=== PATIENT | female | born 1935 | race African-American/Black ===

== ENCOUNTER 2019-09-09 09:04 | Inpatient (IN) | payer MEDICARE ==
[~2019-09-09] VITALS: Ht 154.9 cm; Wt 59.0 kg
[2019-09-09 10:16] LABS: BASO % 0 % (0-3); EOS % 0 % (0-3); HEMATOCRIT 42.5 % (36.0-47.0); HEMOGLOBIN 14.2 g/dL (12.0-15.5); LYMPH # 1.6 x10^3/uL (1.0-4.8); LYMPH % 16 % (24-48); MEAN CORPUSCULAR HEMOGLOBIN 30 pg (25-35); MEAN CORPUSCULAR HGB CONC 33 g/dL (31-37); MEAN CORPUSCULAR VOLUME 89 fL (79-100); MONO # 0.8 x10^3/uL (0.0-1.1); MONO % 8 % (0-9); NEUT # 7.5 x10^3/uL (1.8-7.7); NEUT % 76 % (31-73); PLATELET COUNT 254 x10^3/uL (140-400); RED BLOOD COUNT 4.78 x10^6/uL (3.50-5.40); RED CELL DISTRIBUTION WIDTH 13.8 % (11.5-14.5); WHITE BLOOD COUNT 9.9 x10^3/uL (4.0-11.0)
--- NOTE | 2019-09-09 10:17 | RAD ---
Single AP view of the chest. Comparison: None. Indication: Shortness of air Findings: The heart is at the upper limits of normal. There is no pneumothorax or effusion. No air space or interstitial disease. There is an ovoid radiopaque density over the right upper quadrant. Likely external. Please correlate clinically as this could be ingested. Lateral examination could be of further benefit if necessary.. Impression: 1. No acute cardiopulmonary process. Electronically signed by: Kane Gutierrez MD (09/09/2019 10:14 AM) [id number]
[2019-09-09 10:30] LABS: CALCIUM 9.3 mg/dL (8.5-10.1); CREATININE 0.8 mg/dL (0.6-1.0); GFR 82.5; POTASSIUM 3.8 mmol/L (3.5-5.1)
[2019-09-09 10:35] LABS: ALBUMIN 3.9 g/dL (3.4-5.0); ALBUMIN/GLOBULIN RATIO 1.2 (1.0-1.7); TOTAL BILIRUBIN 0.4 mg/dL (0.2-1.0); TOTAL PROTEIN 7.1 g/dL (6.4-8.2)
--- NOTE | 2019-09-09 10:42 | EKG ---
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
--- NOTE | 2019-09-09 11:17 | PHYS DOC ---
Past Medical History Past Medical History: No Pertinent History Past Surgical History: Hysterectomy Additional Past Surgical Histo: cyst removed from breast Smoking Status: Never Smoker Alcohol Use: None Adult General Chief Complaint Chief Complaint: WEAKNESS/GENERALIZED HPI HPI Patient is a 83 year old -[place] female presents with generalized weakness with frequent falls in the past 24 hours. Patient states she was unable to walk without assistance and does not usually require a walker. Patient did fall twice hitting her head but denies loss of consciousness, headache, dizziness neck pain or any injury or pain related complaint. Denies chest pain palpitations, shortness of breath, abdominal pain, leg pain, swelling. No fever chills or sweats. Reports urinary frequency and incontinence. No other acute symptoms or complaints. [] Review of Systems Review of Systems Review of symptoms as per HPI. All other review of symptoms are negative. All other systems were reviewed and found to be within normal limits, except as documented in this note. Allergies Allergies Allergies Coded Allergies Type Severity Reaction Last Updated Verified No Known Drug Allergies 09/09/19 No Physical Exam Physical Exam Constitutional: Well developed, well nourished, no acute distress, non-toxic appearance. [] HENT: Normocephalic, atraumatic, bilateral external ears normal, oropharynx moist, no oral exudates, nose normal. [] Eyes: PERRLA, EOMI, conjunctiva normal, no discharge. [] Neck: Normal range of motion, no tenderness, supple, no stridor. [] Cardiovascular:Heart rate regular rhythm, no murmur [] Lungs & Thorax: Respirations nonlabored, lung sounds clear. [] Abdomen: Bowel sounds normal, soft, no tenderness[] Skin: Warm, dry, no erythema, no rash. [] Back: No tenderness,[] Extremities: No tenderness, negative Homans signs. [] Neurologic: Alert and oriented X 3, normal motor function, normal sensory f unction, no focal deficits noted. [] Psychologic: Affect normal, judgement normal, mood normal. [] Current Patient Data Vital Signs Vital Signs Date Time Temp Pulse Resp B/P (MAP) Pulse Ox O2 Delivery O2 Flow Rate FiO2 09/09/19 11:10 58 18 98 09/09/19 09:12 98.2 197/86 (123) Room Air 98.2 Lab Values Laboratory Tests Test 5/28/20 09:16 09/09/19 09:30 09/09/19 11:17 White Blood Count 9.9 x10^3/uL (4.0-11.0) Red Blood Count 4.78 x10^6/uL (3.50-5.40) Hemoglobin 14.2 g/dL (12.0-15.5) Hematocrit 42.5 % (36.0-47.0) Mean Corpuscular Volume 89 fL (79-100) Mean Corpuscular Hemoglobin 30 pg (25-35) Mean Corpuscular Hemoglobin Concent 33 g/dL (31-37) Red Cell Distribution Width 13.8 % (11.5-14.5) Platelet Count 254 x10^3/uL (140-400) Neutrophils (%) (Auto) 76 % (31-73) H Lymphocytes (%) (Auto) 16 % (24-48) L Monocytes (%) (Auto) 8 % (0-9) Eosinophils (%) (Auto) 0 % (0-3) Basophils (%) (Auto) 0 % (0-3) Neutrophils # (Auto) 7.5 x10^3/uL (1.8-7.7) Lymphocytes # (Auto) 1.6 x10^3/uL (1.0-4.8) Monocytes # (Auto) 0.8 x10^3/uL (0.0-1.1) Eosinophils # (Auto) 0.0 x10^3/uL (0.0-0.7) Basophils # (Auto) 0.0 x10^3/uL (0.0-0.2) Sodium Level 144 mmol/L (136-145) Potassium Level 3.8 mmol/L (3.5-5.1) Chloride Level 105 mmol/L (98-107) Carbon Dioxide Level 32 mmol/L (21-32) Anion Gap 7 (6-14) Blood Urea Nitrogen 15 mg/dL (7-20) Creatinine 0.8 mg/dL (0.6-1.0) Estimated GFR (Cockcroft-Gault) 82.5 BUN/Creatinine Ratio 19 (6-20) Glucose Level 108 mg/dL (70-99) H Calcium Level 9.3 mg/dL (8.5-10.1) Magnesium Level 2.0 mg/dL (1.8-2.4) Total Bilirubin 0.4 mg/dL (0.2-1.0) Aspartate Amino Transferase (AST) 31 U/L (15-37) Alanine Aminotransferase (ALT) 30 U/L (14-59) Alkaline Phosphatase 98 U/L (46-116) Total Protein 7.1 g/dL (6.4-8.2) Albumin 3.9 g/dL (3.4-5.0) Albumin/Globulin Ratio 1.2 (1.0-1.7) Triglycerides Level 56 mg/dL (0-150) Cholesterol Level 268 mg/dL (0-200) H LDL Cholesterol, Calculated 146 mg/dL (0-100) H VLDL Cholesterol, Calculated 11 mg/dL (0-40) Non-HDL Cholesterol Calculated 157 mg/dL (0-129) H HDL Cholesterol 111 mg/dL (40-60) H Cholesterol/HDL Ratio 2.4 Thyroid Stimulating Hormone (TSH) 0.797 uIU/mL (0.358-3.74) Creatine Kinase 946 U/L (26-192) H Creatine Kinase MB (Mass) 8.1 ng/mL (0.0-3.6) H Creatine Kinase MB Relative Index 0.9 % (0-4) Troponin I Quantitative 0.108 ng/mL (0.000-0.055) Urine Collection Type Unknown Urine Color Yellow Urine Clarity Clear Urine pH 7.5 (<5.0-8.0) Urine Specific [place] 1.010 (1.000-1.030) Urine Protein Negative mg/dL (NEG-TRACE) Urine Glucose (UA) Negative mg/dL (NEG) Urine Ketones (Stick) Negative mg/dL (NEG) Urine Blood Negative (NEG) Urine Nitrite Negative (NEG) Urine Bilirubin Negative (NEG) Urine Urobilinogen Dipstick 0.2 mg/dL (0.2 mg/dL) Urine Leukocyte Esterase Negative (NEG) Urine RBC 0 /HPF (0-2) Urine WBC Rare /HPF (0-4) Urine Squamous Epithelial Cells Occ /LPF Urine Bacteria 0 /HPF (0-FEW) Laboratory Tests 09/09/19 09:16 Laboratory Tests 09/09/19 09:16 EKG EKG [EKG: Reviewed] Radiology/Procedures Radiology/Procedures [Chest x-ray: NAD] CT head:NAD Course & Med Decision Making Course & Med Decision Making Pertinent Labs and Imaging studies reviewed. (See chart for details) [Generalized weakness and fatigue with elevated troponin. No chest pain or shortness of breath in the ED. Will admit to the hospital service with cardiology consult. Dragon Disclaimer Dragon Disclaimer This electronic medical record was generated, in whole or in part, using a voice recognition dictation system. Departure Departure Impression: Primary Impression: Generalized weakness Additional Impression: Elevated troponin Disposition: ADMITTED INPATIENT Condition: STABLE Referrals: NO PCP (PCP) Problem Qualifiers LOUIS ROLLINS DO September 09, 2019 11:16
--- NOTE | 2019-09-09 11:28 | PDOC2 ---
SAUMYA ALLAN OLIVER FILTER OPERATOR 09/09/19 1128: CARDIAC CONSULT DATE OF CONSULT Date of Consult DATE: 09/09/19 TIME: 11:22 REASON FOR CONSULT Reason for Consult: Elevated troponin REFERRING PHYSICIAN Referring Physician: Dr. Coronado SOURCE Source: Chart review, Patient HISTORY OF PRESENT ILLNESS HISTORY OF PRESENT ILLNESS This is an 83 yo female who presented with complaints of weakness. Troponin checked and noted to be mildly elevated, which prompted this consult. Patient denies any chest pain, shortness of breath, dizziness, diaphoresis, or nausea/vomiting. Reports urinary frequency over the last 24 hrs. Has also been more weak and fallen since yesterday. Reports that he legs give out, causing her to fall. No recent illness/fevers or sick contacts. PAST MEDICAL HISTORY Cardiovascular: No pertinent hx Pulmonary: No pertinent hx GI: GERD Musculoskeletal: Osteoarthritis Endocrine: No pertinent hx PAST SURGICAL HISTORY Past Surgical History: Hysterectomy FAMILY HISTORY Family History: Hypertension SOCIAL HISTORY Smoke: No ALCOHOL: none Drugs: None Lives: with Family ALLERGIES ALLERGIES: Coded Allergies: No Known Drug Allergies (Unverified , 09/09/19) ROS Review of System 14 point ROS conducted with pertinent positives noted above in HPI PHYSICAL EXAM General: Alert, Oriented X3, Cooperative, No acute distress HEENT: Mucous membr. moist/pink Lungs: Clear to auscultation Heart: Regular rate, Normal S1, Normal S2 Abdomen: Soft, No tenderness Extremities: No edema, Normal pulses Skin: No significant lesion Neuro: Normal speech, Sensation intact Psych/Mental Status: Mental status NL, Mood NL MUSCULOSKELETAL: Osteoarthritic changes both hands VITALS/I&O VITALS/I&O: Vital Signs Date Time Temp Pulse Resp B/P (MAP) Pulse Ox O2 Delivery O2 Flow Rate FiO2 09/09/19 10:10 62 18 96 09/09/19 09:12 98.2 197/86 (123) Room Air 98.2 LABS Lab: Laboratory Tests Test 09/09/19 09:16 09/09/19 09:30 White Blood Count 9.9 x10^3/uL (4.0-11.0) Red Blood Count 4.78 x10^6/uL (3.50-5.40) Hemoglobin 14.2 g/dL (12.0-15.5) Hematocrit 42.5 % (36.0-47.0) Mean Corpuscular Volume 89 fL (79-100) Mean Corpuscular Hemoglobin 30 pg (25-35) Mean Corpuscular Hemoglobin Concent 33 g/dL (31-37) Red Cell Distribution Width 13.8 % (11.5-14.5) Platelet Count 254 x10^3/uL (140-400) Neutrophils (%) (Auto) 76 % (31-73) H Lymphocytes (%) (Auto) 16 % (24-48) L Monocytes (%) (Auto) 8 % (0-9) Eosinophils (%) (Auto) 0 % (0-3) Basophils (%) (Auto) 0 % (0-3) Neutrophils # (Auto) 7.5 x10^3/uL (1.8-7.7) Lymphocytes # (Auto) 1.6 x10^3/uL (1.0-4.8) Monocytes # (Auto) 0.8 x10^3/uL (0.0-1.1) Eosinophils # (Auto) 0.0 x10^3/uL (0.0-0.7) Basophils # (Auto) 0.0 x10^3/uL (0.0-0.2) Sodium Level 144 mmol/L (136-145) Potassium Level 3.8 mmol/L (3.5-5.1) Chloride Level 105 mmol/L (98-107) Carbon Dioxide Level 32 mmol/L (21-32) Anion Gap 7 (6-14) Blood Urea Nitrogen 15 mg/dL (7-20) Creatinine 0.8 mg/dL (0.6-1.0) Estimated GFR (Cockcroft-Gault) 82.5 BUN/Creatinine Ratio 19 (6-20) Glucose Level 108 mg/dL (70-99) H Calcium Level 9.3 mg/dL (8.5-10.1) Magnesium Level 2.0 mg/dL (1.8-2.4) Total Bilirubin 0.4 mg/dL (0.2-1.0) Aspartate Amino Transferase (AST) 31 U/L (15-37) Alanine Aminotransferase (ALT) 30 U/L (14-59) Alkaline Phosphatase 98 U/L (46-116) Total Protein 7.1 g/dL (6.4-8.2) Albumin 3.9 g/dL (3.4-5.0) Albumin/Globulin Ratio 1.2 (1.0-1.7) Thyroid Stimulating Hormone (TSH) 0.797 uIU/mL (0.358-3.74) Troponin I Quantitative 0.108 ng/mL (0.000-0.055) Laboratory Tests 09/09/19 09:16 Laboratory Tests 09/09/19 09:16 ASSESSMENT/PLAN ASSESSMENT/PLAN 1. Weakness, falls. 2. Urinary frequency; UA negative for UTI 3. Mild troponin elevation; initial 0.1. Most probably type II demand ischemia. CP free. EKG without significant acute findings. 4. Accelerated hypertension; now better controlled. Recommendations ASA Lipids Trend troponin Echo to assess LV systolic function Further pending above PIERO SANTOS MD 09/09/19 1512: CARDIAC CONSULT ASSESSMENT/PLAN ASSESSMENT/PLAN Patient seen and examined. Agree with above nurse practitioner note. Agree that troponin elevation is most likely related to hypertension. Etiology of her falls is unclear. Continue serial enzymes. Agree with echocardiogram. Blood pressure is better controlled since admission. We will follow along. Patient does not have any baseline symptoms. SAUMYA ALLAN APRN September 09, 2019 11:28 PIERO SANTOS MD September 09, 2019 15:12
[2019-09-09] MEDS ORDERED: ASPIRIN 325 MG TABLET PO ONE (11:30)
[2019-09-09 11:34] LABS: BACTERIA,URINE 0 /HPF (0-FEW); BILIRUBIN,URINE NEGATIVE (NEG); CLARITY,URINE CLEAR; COLOR,URINE YELLOW; NITRITE,URINE NEGATIVE (NEG); PH,URINE 7.5 (<5.0-8.0); PROTEIN,URINE NEGATIVE (NEG-TRACE); RBC,URINE 0 /HPF (0-2); SQUAMOUS EPITHELIAL CELL,UR OCC /LPF; UROBILINOGEN,URINE 0.2 mg/dL (0.2 mg/dL); WBC,URINE RARE /HPF (0-4)
[2019-09-09 11:51] LABS: CHOLESTEROL/HDL RATIO 2.4
[2019-09-09] MEDS ORDERED: ONDANSETRON PF 4 MG/2 ML VIAL. IVP ONE (12:00)
[2019-09-09] MEDS ORDERED: IV NORMAL SALINE 1000ML BAG 1,000 ML IV ONE (12:00)
[2019-09-09 12:55] VITALS: BP 168/90
--- NOTE | 2019-09-09 13:32 | HP ---
ADMIT DATE: 09/09/2019 CHIEF COMPLAINT: Falls and weakness. HISTORY OF PRESENT ILLNESS: The patient is a pleasant 83-year-old female who fell twice in the past couple of days. She states she is very weak. It has been going on for several weeks. She is increasing her home meds, but that is not working. I discussed the case with ER physician. The patient's troponin was also slightly elevated. We are going to admit the patient and consult Cardiology. PAST MEDICAL HISTORY: Hypertension, breast cyst. ALLERGIES: None. FAMILY HISTORY: Hypertension. SOCIAL HISTORY: She does not drink, smoke or take drugs. MEDICATIONS: Reviewed, please refer to the MRAD. REVIEW OF SYSTEMS: GENERAL: She complains of falls. SKIN: No bruising, hair changes or rashes. EYES: No blurred, double or loss of vision. NOSE AND THROAT: No history of nosebleeds, hoarseness or sore throat. HEART: No history of palpitations, chest pain or shortness of breath on exertion. LUNGS: Denies cough, hemoptysis, wheezing or shortness of breath. GASTROINTESTINAL: Denies changes in appetite, nausea, vomiting, diarrhea or constipation. GENITOURINARY: No history of frequency, urgency, hesitancy or nocturia. NEUROLOGIC: She complains of weakness. She also complains of falls. PSYCHIATRIC: No history of panic, anxiety or depression. ENDOCRINE: No history of heat or cold intolerance, polyuria or polydipsia. EXTREMITIES: Denies muscle weakness, joint pain, pain on walking or stiffness. PHYSICAL EXAMINATION: VITALS: Within normal limits and are stable. GENERAL: No apparent distress. Alert and oriented. HEENT: Normal cephalic atraumatic, external auditory canals are patent EYES: Extraocular muscles are intact, pupils are equally round and reactive to light and accommodation MUSCULOSKELETAL: Well developed, well nourished, good range of motion ENDOCRINE: No thyromegaly was palpated LYMPHATICS: No cervical chain or axillary nodes were noted HEMATOPOIETIC: No bruising NECK: Supple, no JVD, no thyromegaly was noted. LUNGS: Clear to auscultation in all lung blevins without rhonchi or wheezing. HEART: RRR, S1, S2 present. Peripheral pulses intact, no obvious murmurs were noted. ABDOMEN: Soft, nontender. Positive bowel sounds no organomegaly, normal bowel sounds. EXTREMITIES: Without any cyanosis, clubbing, or edema. Pedal pulses intact, Homans sign is negative. NEUROLOGIC: Normal speech, normal tone. A & O x3, moves all extremities, no obvious focal deficits. PSYCHIATRIC: Normal affect, normal mood. Stable. SKIN: No ulcerations or rashes, good skin turgor, no jaundice. VASCULAR: Good capillary refill, neurovascular bundle appears to be intact. LABORATORY DATA: Troponin is 0.108. ASSESSMENT AND PLAN: Falls with slightly elevated troponin. The patient will be admitted. We will trend her cardiac enzymes. Home meds, DVT prophylaxis. Full code. Cardiac monitoring. Consult Cardiology. Echocardiogram. ASIYA CRUZ DO DR: DAVID/jose JOB#: [id number] / [id number]
[2019-09-09 15:00] VITALS: BP 168/90
[2019-09-09] MEDS: LISINOPRIL 5 MG TABLET. PO SCH (15:58)
--- NOTE | 2019-09-09 16:50 | CARD ---
MR#: [id number] Date of Study: 09/09/2019 Ordering Physician: SAUMYA ALLAN, Referring Physician: SAUMYA ALALN, Tech: Teodora Pereira APPROVED REPORT EXAM: Two-dimensional and M-mode echocardiogram with Doppler and color Doppler. Other Information Quality : AverageHR: 70bpm INDICATION Elevated Troponin RISK FACTORS Hypertension 2D DIMENSIONS RVDd3.3 (2.9-3.5cm)Left Atrium(2D)3.1 (1.6-4.0cm) IVSd0.9 (0.7-1.1cm)Aortic Root(2D)2.6 (2.0-3.7cm) LVDd4.4 (3.9-5.9cm)LVOT Diameter1.9 (1.8-2.4cm) PWd0.8 (0.7-1.1cm)LVDs2.5 (2.5-4.0cm) FS (%) 42.7 %SV64.6 ml Aortic Valve AoV Peak Dimitri.164.5cm/sAoV VTI40.2cm AO Peak GR.10.8mmHgLVOT VTI 27.24cm AO Mean GR.7mmHg Mitral Valve MV E Peak Gr.6mmHgMV E Mean Gr.2mmHg TDI Lateral E' P. V9.65cm/sMedial E' P. V6.24cm/s Tricuspid Valve TR P. Buxonnjl279en/sRAP [id number] TR Peak Gr.11zsKjSABL03ufJh Pulmonary Vein S1 Nlcrzdwm33.8cm/sS2 Afdannnp70.47cm/s D2 Dnanvykc39.5cm/sPVa [id number] LEFT VENTRICLE The left ventricle is normal size. There is normal left ventricular wall thickness. The left ventricu lar systolic function is normal and the ejection fraction is within normal range. The Ejection Fracti on is 55-60%. There is normal LV segmental wall motion. Transmitral Doppler flow pattern is Grade I-a bnormal relaxation pattern. RIGHT VENTRICLE The right ventricle is normal size. There is normal right ventricular wall thickness. The right ventr icular systolic function is normal. ATRIA The left atrium size is normal. The right atrium size is normal. The interatrial septum is intact wit h no evidence for an atrial septal defect or patent foramen ovale as noted on 2-D or Doppler imaging. AORTIC VALVE The aortic valve is normal in structure and function. Doppler and Color Flow revealed no significant aortic regurgitation. There is no significant aortic valvular stenosis. MITRAL VALVE The mitral valve is normal in structure and function. There is no evidence of mitral valve prolapse. There is no mitral valve stenosis. Doppler and Color-flow revealed trace to mild mitral regurgitation . TRICUSPID VALVE The tricuspid valve is normal in structure and function. Doppler and Color Flow revealed mild tricusp id regurgitation with an estimated PAP of 35 mmHg. There is no tricuspid valve stenosis. PULMONIC VALVE The pulmonic valve is not well visualized. Doppler and Color Flow revealed no pulmonic valvular regur gitation. GREAT VESSELS The aortic root is normal in size. The IVC is normal in size and collapses >50% with inspiration. PERICARDIAL EFFUSION There is no evidence of significant pericardial effusion. Critical Notification Critical Value: No <Conclusion> The left ventricle is normal size. The left ventricular systolic function is normal and the ejection fraction is within normal range. The Ejection Fraction is 55-60%. Doppler and Color Flow revealed no significant aortic regurgitation. There is no significant aortic valvular stenosis. Doppler and Color-flow revealed trace to mild mitral regurgitation. Doppler and Color Flow revealed mild tricuspid regurgitation with an estimated PAP of 35 mmHg. Signed by : Meño Armando MD Electronically Approved : 09/09/2019 16:50:13
[2019-09-09 20:17] VITALS: BP 131/77
[2019-09-09] MEDS ORDERED: ATORVASTATIN CALCIUM 20 MG TABLET PO SCH (21:00)
[2019-09-09 22:55] VITALS: BP 138/63
[2019-09-10 03:00] VITALS: BP 143/69
[2019-09-10 07:00] VITALS: BP 128/57
[2019-09-10] MEDS ORDERED: ASPIRIN ENTERIC COATED 81 MG TABLET.DR. PO SCH (08:00)
[2019-09-10] MEDS: LISINOPRIL 5 MG TABLET. PO SCH (08:12)
--- NOTE | 2019-09-10 08:25 | PDOC ---
[employer] PROGRESS NOTE Chief Complaint Chief Complaint Elevated troponin Falls Hypertension Breast cyst History of Present Illness History of Present Illness 09/10/2019 Patient seen and examined She is resting with no apparent distress Reviewed with nurse Reviewed chart Vitals/I&O Vitals/I&O: Vital Signs Date Time Temp Pulse Resp B/P (MAP) Pulse Ox O2 Delivery O2 Flow Rate FiO2 09/10/19 08:12 56 128/57 09/10/19 07:00 98.0 18 95 Room Air 98.0 I & O 09/09/19 09/09/19 09/10/19 14:59 22:59 06:59 Intake Total 300 ml 200 ml Balance 300 ml 200 ml Physical Exam General: No acute distress Heart: Regular rate, Normal S1, Normal S2 Lungs: Clear Abdomen: Soft, No tenderness Extremities: No edema, Normal pulses Skin: No rashes, No significant lesion Labs Labs: Laboratory Tests Test 09/09/19 09:16 09/09/19 09:30 09/09/19 11:17 09/09/19 15:30 White Blood Count 9.9 x10^3/uL (4.0-11.0) Red Blood Count 4.78 x10^6/uL (3.50-5.40) Hemoglobin 14.2 g/dL (12.0-15.5) Hematocrit 42.5 % (36.0-47.0) Mean Corpuscular Volume 89 fL (79-100) Mean Corpuscular Hemoglobin 30 pg (25-35) Mean Corpuscular Hemoglobin Concent 33 g/dL (31-37) Red Cell Distribution Width 13.8 % (11.5-14.5) Platelet Count 254 x10^3/uL (140-400) Neutrophils (%) (Auto) 76 % (31-73) Lymphocytes (%) (Auto) 16 % (24-48) Monocytes (%) (Auto) 8 % (0-9) Eosinophils (%) (Auto) 0 % (0-3) Basophils (%) (Auto) 0 % (0-3) Neutrophils # (Auto) 7.5 x10^3/uL (1.8-7.7) Lymphocytes # (Auto) 1.6 x10^3/uL (1.0-4.8) Monocytes # (Auto) 0.8 x10^3/uL (0.0-1.1) Eosinophils # (Auto) 0.0 x10^3/uL (0.0-0.7) Basophils # (Auto) 0.0 x10^3/uL (0.0-0.2) Sodium Level 144 mmol/L (136-145) Potassium Level 3.8 mmol/L (3.5-5.1) Chloride Level 105 mmol/L (98-107) Carbon Dioxide Level 32 mmol/L (21-32) Anion Gap 7 (6-14) Blood Urea Nitrogen 15 mg/dL (7-20) Creatinine 0.8 mg/dL (0.6-1.0) Estimated GFR (Cockcroft-Gault) 82.5 BUN/Creatinine Ratio 19 (6-20) Glucose Level 108 mg/dL (70-99) Calcium Level 9.3 mg/dL (8.5-10.1) Magnesium Level 2.0 mg/dL (1.8-2.4) Total Bilirubin 0.4 mg/dL (0.2-1.0) Aspartate Amino Transf (AST/SGOT) 31 U/L (15-37) Alanine Aminotransferase (ALT/SGPT) 30 U/L (14-59) Alkaline Phosphatase 98 U/L (46-116) Total Protein 7.1 g/dL (6.4-8.2) Albumin 3.9 g/dL (3.4-5.0) Albumin/Globulin Ratio 1.2 (1.0-1.7) Triglycerides Level 56 mg/dL (0-150) Cholesterol Level 268 mg/dL (0-200) LDL Cholesterol, Calculated 146 mg/dL (0-100) VLDL Cholesterol, Calculated 11 mg/dL (0-40) Non-HDL Cholesterol Calculated 157 mg/dL (0-129) HDL Cholesterol 111 mg/dL (40-60) Cholesterol/HDL Ratio 2.4 Thyroid Stimulating Hormone (TSH) 0.797 uIU/mL (0.358-3.74) Creatine Kinase 946 U/L (26-192) Creatine Kinase MB (Mass) 8.1 ng/mL (0.0-3.6) Creatine Kinase MB Relative Index 0.9 % (0-4) Troponin I Quantitative 0.108 ng/mL (0.000-0.055) 0.128 ng/mL (0.000-0.055) Urine Collection Type Unknown Urine Color Yellow Urine Clarity Clear Urine pH 7.5 (<5.0-8.0) Urine Specific [place] 1.010 (1.000-1.030) Urine Protein Negative mg/dL (NEG-TRACE) Urine Glucose (UA) Negative mg/dL (NEG) Urine Ketones (Stick) Negative mg/dL (NEG) Urine Blood Negative (NEG) Urine Nitrite Negative (NEG) Urine Bilirubin Negative (NEG) Urine Urobilinogen Dipstick 0.2 mg/dL (0.2 mg/dL) Urine Leukocyte Esterase Negative (NEG) Urine RBC 0 /HPF (0-2) Urine WBC Rare /HPF (0-4) Urine Squamous Epithelial Cells Occ /LPF Urine Bacteria 0 /HPF (0-FEW) Test 09/09/19 23:00 Troponin I Quantitative 0.084 ng/mL (0.000-0.055) Assessment and Plan Assessmemt and Plan Problems Medical Problems: (1) Elevated troponin Status: Acute (2) Generalized weakness Status: Acute Falls with slightly elevated troponin. History of breast cyst Hypertension Plan Cardiac monitoring Serial enzymes Serial EKGs Home meds DVT prophylaxis Full code Await further subspecialist input Comment Review of Relevant I have reviewed the following items britton (where applicable) has been applied. Medications: Current Medications Medications (Trade) Dose Ordered Sig/Lacy Route PRN Reason Start Time Stop Time Status Last Admin Dose Admin Aspirin (Gosia Aspirin) 325 mg 1X ONCE PO 09/09/19 11:30 09/09/19 11:31 DC 09/09/19 11:31 Lisinopril (Prinivil) 5 mg DAILY PO 09/09/19 14:15 09/10/19 08:12 Atorvastatin Calcium (Lipitor) 20 mg QHS PO 09/09/19 21:00 09/09/19 22:05 Aspirin (Ecotrin) 81 mg [id number] PO 09/10/19 08:00 09/10/19 08:12 ASIYA CRUZ III DO September 10, 2019 08:25
[2019-09-10 10:57] VITALS: BP 140/57
[2019-09-10 11:15] VITALS: BP 146/52
[2019-09-10 11:17] VITALS: BP 152/61
[2019-09-10 11:20] VITALS: BP 155/66
[2019-09-10] MEDS ORDERED: LISI-338 PO (11:32)
[2019-09-10] MEDS ORDERED: ATOR20TA58 PO (11:34)
[2019-09-10] MEDS ORDERED: ASPI81TA59 PO (11:35)
--- NOTE | 2019-09-10 13:20 | PDOC ---
CARDIO Progress Notes Date and Time Date of Service 09/10/2019 Time of Evaluation 1030 Subjective Subjective: No Chest Pain, No shortness of breath, No Palpitations Vitals Vitals Vital Signs Date Time Temp Pulse Resp B/P (MAP) Pulse Ox O2 Delivery O2 Flow Rate FiO2 09/10/19 11:20 72 155/66 (95) 09/10/19 10:57 97.5 18 95 Room Air 97.5 Weight Weight [ ] Input and Output Intake and Output Intake and Output 09/10/19 07:00 Intake Total 500 ml Balance 500 ml Intake Oral 500 ml # Voids 3 Laboratory Labs Laboratory Tests Test 09/09/19 15:30 09/09/19 23:00 Troponin I Quantitative 0.128 ng/mL (0.000-0.055) 0.084 ng/mL (0.000-0.055) Physical Exam HEENT: Neck Supple W Full Motion Chest: Symmetric LUNGS: Clear to Auscultation Heart: S1S2, RRR (SR no ectopies) Abdomen: Soft N/T Extremities: No Edema, No Calf Tenderness Neurology: alert, oriented, follow commands Assessment Assessment 1. Weakness, falls: radiculopathy? notable for LLE numbness and weakness which is now better. No presyncopal sspells. defer to PCP 2. Rhabdomyolysis: possibly from fall 3. Mild troponin elevation; initial 0.1. Most probably type II demand ischemia. CP free. EKG without significant acute findings. EF and WM nml 4. Accelerated hypertension; now better controlled. Recommendations ASA. Repeat CK, BMP and Mg. Will hold off statin till CK is better. Continue lisinopril unless Cr is increased. Maintain PO hydration HBPM Will consider outpt stress test with associated risk factors. Follow up in office. PB THAO APRN September 10, 2019 13:20
--- NOTE | 2019-09-10 14:43 | NUR ---
SS following for discharge planning. SS reviewed pt chart and discussed with pt RN. Pt is from home and is currently on room air. Discharge order on the chart for self care.
--- NOTE | 2019-09-10 14:53 | NUR ---
Discharged patient to home. Discharge instructions given. PIV and heart monitor removed. Escorted patient to main entrance per wheel chair into a private vehicle.
[2019-09-10 15:24] LABS: CALCIUM 9.4 mg/dL (8.5-10.1); CREATININE 1.3 mg/dL (0.6-1.0); GFR 47.1; MAGNESIUM 2.2 mg/dL (1.8-2.4); POTASSIUM 4.3 mmol/L (3.5-5.1)
== END 2019-09-10 14:53 | disposition home or self-care (01) | DRG 558 ==
LOC: ER 09:04 → 2 SOUTH 11:20
PROVIDERS: ADMIT Internal Medicine; ATTEND Internal Medicine
DX: M62.82 Rhabdomyolysis (principal); I24.8 Other forms of acute ischemic heart disease; I10 Essential (primary) hypertension; R29.6 Repeated falls; K21.9 Gastro-esophageal reflux disease without esophagitis; M19.90 Unspecified osteoarthritis, unspecified site; Z90.710 Acquired absence of both cervix and uterus; Z82.49 Family history of ischemic heart disease and other diseases of the circulatory system
CPT/HCPCS: 36415; 71045; 80048; 80053; 80061; 81001; 82550; 82553; 83735; 84443; 84484; 85025; 93005; 93306; 99285-25; G0378